=== PATIENT | female | born 1940 | race Caucasian/White ===

== ENCOUNTER 2016-12-18 19:35 | Inpatient (IN) | payer MEDICARE ==
[~2016-12-18] VITALS: Ht 165.1 cm; Wt 75.1 kg
[2016-12-18 20:14] LABS: BASOPHILS 0.1 % (0.0-2.0); EOSINOPHILS 0.5 % (0-7); HEMATOCRIT 33.3 % (36.0-48.0); HEMOGLOBIN 10.8 g/dL (12-16); IMMATURE GRANULOCYTES 0.3 % (0-5); LYMPHOCYTES 22.1 % (15-50); MCH 29.3 pg (26.0-34.0); MCHC 32.4 g/dL (31.0-37.0); MCV 90.5 fL (80.0-100.0); MEAN PLATELET VOLUME 9.4 fL (7.4-10.4); MONOCYTES 6.8 % (2-11); NEUTROPHILS 70.2 % (40-80); PLATELET COUNT 247 10x3/uL (130-400); RBC 3.68 10x6/uL (4.00-5.40); RDW 12.1 % (11.5-14.5); WBC 10.2 10x3/uL (4.8-10.8)
[2016-12-18 20:44] LABS: ALBUMIN 3.4 g/dL (3.4-5.0); ALKALINE PHOSPHATASE 70 U/L (46-116); ALT (SGPT) 16 U/L (10-68); AMYLASE - SERUM 59 U/L (25-115); BILIRUBIN - TOTAL 0.21 mg/dL (0.2-1.3); CALC OSMOLALITY 290 mosm/kg (275-300); CALCIUM 9.2 mg/dL (8.5-10.1); CARBON DIOXIDE 26.3 mmol/L (21.0-32.0); CHLORIDE - SERUM 105 mmol/L (98-107); CREATINE KINASE 68 UL (21-215); CREATININE - SERUM 1.4 mg/dL (0.6-1.3); GLUCOSE 112 mg/dL (74-106); LIPASE 121 U/L (73-393); POTASSIUM - SERUM 3.5 mmol/L (3.5-5.1); PRO BNP 480 pg/mL (0-450); PROTEIN - SERUM 6.8 g/dL (6.4-8.2); SODIUM 142 mmol/L (136-145); UREA NITROGEN 33 mg/dL (7-18); eGFR NON AFRICAN AMERICAN 39 mL/min (90-120)
[2016-12-18 20:46] LABS: TROPONIN-I < 0.017 ng/mL (0.000-0.060)
[2016-12-18 22:21] LABS: APPEARANCE HAZY (CLEAR); BILIRUBIN NEGATIVE (NEGATIVE); COLOR YELLOW (YELLOW); GLUCOSE 250 mg/dL (NEGATIVE); KETONE NEGATIVE (NEGATIVE); LEUKOCYTE ESTERASE 2+ (NEGATIVE); NITRITE NEGATIVE (NEGATIVE); PROTEIN NEGATIVE (NEGATIVE); UROBILINOGEN NORMAL (NORMAL)
[2016-12-18 22:22] LABS: RED CELLS - URINE 0-5 /hpf (0-5)
[2016-12-18 22:23] LABS: BACTERIA MANY /hpf (NONE SEEN); MUCUS <1+ /lpf (NONE SEEN)
--- NOTE | 2016-12-19 01:20 | NUR ---
RECIEVED TO ROOM 2101 FROM E.R. VIA WC. PT A&O, VITALS STABLE. RESPERATIONS EVEN AND UNLABORED. IV TO LEFT AC WITH NS INFUSING AT 75, SITE CLEAN AND DRY. PT STATES THAT FORTUNATO CANT SEE VERY WELL AND THAT SHE LEFT HER GLASSES AT HOME. ORIENTATED PT ROOM/SURROUNDINGS AND CL. INFORMED HER TO PRESS THE RED BUTTON FOR ASSISTANCE AND TO PLEASE NOT GET UP BY HER SELF, PT STATED UNDERSTANDING. ASKDED PT HAD ANY VALUABLES TO BE SENT TO SAFE AND PT STATED NO, THAT HER DAUGHTER TOOK ALL OF HER BELONGINGS HOME INCLUDING HER CLOTHES. PT DENIES PAIN OR NEEDS, AT THIS TIME, BED LOW, CL IN REACH.
[2016-12-19] MEDS ORDERED: ZOCOR40 MG PO (02:03)
[2016-12-19] MEDS ORDERED: METOPROLOL TART50 MG PO (02:04)
[2016-12-19] MEDS ORDERED: PRINIVIL20 MG PO (02:04)
[2016-12-19] MEDS ORDERED: TERAZOSIN HCL2 MG PO (02:05)
[2016-12-19] MEDS ORDERED: NOVOLIN N100 U/ML SQ (02:06)
[2016-12-19 04:00] VITALS: BP 127/62
--- NOTE | 2016-12-19 04:23 | NUR ---
RESTING WITH EYES CLOSED, RESPERATIONS EVEN, NO S/S DISTRESS NOTED.
[2016-12-19 07:48] VITALS: BP 138/57
[2016-12-19 08:21] VITALS: BP 138/57; BMI 27.5
--- NOTE | 2016-12-19 08:28 | NUR ---
PT IS ALERT. ASSESSMENT DONE PER FLOWSHEET. NO OTHER NEEDS AT THIS TIME. WILL CONTINUE TO MONTIOR.
[2016-12-19 11:03] VITALS: Ht 165.1 cm; Wt 75.1 kg
[2016-12-19] MEDS ORDERED: ROBAXIN500 MG PO ×2 (11:13→11:14)
[2016-12-19] MEDS ORDERED: HYDROCODONE-APA1 TAB PO (11:14)
[2016-12-19] MEDS ORDERED: NAMENDA XR28 MG PO (11:15)
[2016-12-19] MEDS ORDERED: OXYBUTYNIN CHLOR5 MG PO (11:16)
[2016-12-19] MEDS ORDERED: ULTRAM50 MG PO (11:16)
[2016-12-19] MEDS ORDERED: ZOLOFT100 MG PO (11:17)
[2016-12-19] MEDS ORDERED: COMBIVENT RESPIM4 GM INH (11:18)
[2016-12-19] MEDS ORDERED: TEMAZEPAM30 MG PO (11:18)
[2016-12-19] MEDS ORDERED: ADVAIR 250/501 DISK INH (11:19)
[2016-12-19] MEDS ORDERED: LYRICA150 MG PO (11:20)
[2016-12-19] MEDS ORDERED: NITROSTAT0.4 MG SL (11:20)
[2016-12-19] MEDS ORDERED: PRAVACHOL20 MG PO (11:21)
[2016-12-19 11:35] VITALS: BP 141/51
[2016-12-19 16:14] VITALS: BP 137/67
--- NOTE | 2016-12-19 19:49 | NUR ---
PT AWAKE, ALERT, ORIENTED, ON HER CELL PHONE, DENIES ANY NEEDS. CONTINUE TO MONITOR CLOSELY.
[2016-12-19 20:00] VITALS: BP 145/63
[2016-12-20] VITALS: BP 123/46
[2016-12-20 04:00] VITALS: BP 143/67
--- NOTE | 2016-12-20 04:11 | NUR ---
NURSE ROUNDS 19:30 - PT AWAKE, ALERT, ORIENTED, DENIES ANY NEEDS. I DID GIVE PT ZEUS HELLEN WITH HER BEDTIME INSULIN. CONTINUE TO MONITOR.
[2016-12-20 04:59] LABS: BASOPHILS 0.1 % (0.0-2.0); EOSINOPHILS 0.5 % (0-7); HEMOGLOBIN 10.7 g/dL (12-16); IMMATURE GRANULOCYTES 0.3 % (0-5); LYMPHOCYTES 31.7 % (15-50); MCH 28.8 pg (26.0-34.0); MCHC 31.5 g/dL (31.0-37.0); MCV 91.6 fL (80.0-100.0); MEAN PLATELET VOLUME 9.5 fL (7.4-10.4); NEUTROPHILS 62.4 % (40-80); PLATELET COUNT 249 10x3/uL (130-400); RBC 3.71 10x6/uL (4.00-5.40); RDW 12.3 % (11.5-14.5)
[2016-12-20 05:09] LABS: WBC 7.3 10x3/uL (4.8-10.8)
[2016-12-20 05:30] LABS: ANION GAP 10.2 mmol/L (8-16); CARBON DIOXIDE 29.4 mmol/L (21.0-32.0); CREATININE - SERUM 1.3 mg/dL (0.6-1.3); POTASSIUM - SERUM 4.6 mmol/L (3.5-5.1)
[2016-12-20 05:33] LABS: % SATURATION 23 % (15-55); IRON 46 ug/dl (35-150); TOTAL IRON BIND CAPACITY 192 ug/dl (260-445); UNSAT IRON BIND CAPACITY 146 ug/dl (150-375)
--- NOTE | 2016-12-20 06:23 | HP ---
PATIENT: SHRUTI LEMOS MEDICAL RECORD: [id number] ACCOUNT: [id number] LOCATION:[facility].2102 : 39 ADMISSION DATE: 12/19/16 HISTORY AND PHYSICAL EXAMINATION REASON FOR ADMISSION: Nausea, facial pain with uncontrolled diabetes. HISTORY OF PRESENT ILLNESS: The patient is a 76-year-old female with metabolic syndrome. She said for the last 2 weeks, she had symptoms of upper respiratory tract infection with sinus congestion and right-sided frontal headache. Her daughter had been treating her with Tylenol, which improved her symptoms. She denied fever, nasal rhinorrhea, or sore throat. Apparently, yesterday, she thought she might faint. They called EMS and noted her blood sugars over 500 and she was brought to the Emergency Room. She vomited once in the ER and then felt better. She denies any productive cough or abdominal pain. She has had some urinary urgency. She has been compliant with her diet. She says recently has had poor appetite for the last week. PAST MEDICAL HISTORY: Essential hypertension, type 2 diabetes mellitus, now on insulin, hyperlipidemia, osteoporosis, history of cellulitis of her right leg, requiring I&D and left wrist requiring I&D in the past. Remote history of seizures. PAST SURGICAL HISTORY: I&D of right foot and left wrist, and cataract surgery, OU. ALLERGIES: EGGS, INFLUENZA VACCINE, PENICILLIN. FAMILY HISTORY: Father at 95, he had a history of lung cancer, and was a smoker. Mother at 48 from rectal cancer. CURRENT MEDICATIONS: Lisinopril 20 mg daily, Novolin N 34 units subQ in the evening, simvastatin 40 mg at h.s., terazosin 2 mg p.o. daily, and metoprolol 50 mg p.o. daily. REVIEW OF SYSTEMS: GENERAL: She has felt very fatigued and somewhat nauseated for the last couple of days with poor appetite. HEENT: She has chronic trouble with her vision. She has had recent sinus congestion with some discomfort on her right maxillary and frontal sinus, but no rash. Denies sore throat or off color rhinorrhea. RESPIRATORY: No SOB or cough. CARDIAC: No chest pain, claudication or edema. GASTROINTESTINAL: She has had nausea and vomited once. Denies change in stools, diarrhea, melena, or abdominal pain. GYNECOLOGIC: No vaginal bleeding. NEUROLOGIC: No history of stroke. The patient had remote history of seizures, none in several years. ENDOCRINE: Denies polyuria, polydipsia, heat, or cold intolerance. INTEGUMENT: No rash or itching. PSYCHIATRIC: Denies depressed mood. PHYSICAL EXAMINATION: VITAL SIGNS: Temperature 96.1 Fahrenheit orally, pulse 82 and regular, respirations are 22, blood pressure 130/54, and sats 96% on room air. The HISTORY AND PHYSICAL [id number] SHRUTI LEMOS patient is alert and oriented. HEENT: Normocephalic. She is somewhat tender over the right frontal sinus to deep palpation. Eyes show cataract implants, OU, with poor vision. Oropharynx shows fair dentition. NECK: No adenopathy or bruits. CHEST: Clear. HEART: Regular rate without MGR. ABDOMEN: Soft and nontender throughout. Bowel sounds are active. PELVIC: Deferred. EXTREMITIES: A 1+ pretibial edema to mid calf bilaterally. Homans sign is negative. NEUROLOGIC: Oriented to person, place, and time. Cranial nerves grossly intact. Gait is normal. No motor deficits are appreciated. PSYCHIATRIC: Denies depressed mood. LABORATORY DATA: Blood sugar in the ambulance was 500 and was 293 in the ER. Urinalysis shows 2+ leukocyte esterase, 10-25 white cells, many bacteria. Potassium is 3.5, BUN and creatinine were 33 and 1.4. A1c is 9. Her original lactic acid was 2.8, and then dropped to 1.1. ProBNP is 480. Liver functions were normal. White count is 10,000, H&H of 10.8 and 33.3. DIAGNOSTIC DATA: No x-rays were done in the ER. ASSESSMENT: 1. Uncontrolled diabetes mellitus, type 2. 2. Urinary tract infection with lactic acidosis. 3. Anemia. 4. Near syncope. 5. Remote history of seizures. 6. Essential hypertension. 7. Hyperlipidemia. PLAN: We will hydrate, culture blood and urine, cardiac monitoring. Further workup pending clinical course. TRANSINT:[id number] Voice Confirmation ID: [id number] DOCUMENT ID: [id number] CAMERON GONZALEZ MD at 0623 CC: [id number] DICTATION DATE: 12/19/16 0708 INTELLIGENCE CLERK: 12/19/16 0823 ADM IN [place] [id number] [place] [address]
--- NOTE | 2016-12-20 07:57 | NUR ---
AM ROUNDING- PT LAYING IN BED ON BACK WITH EYES OPEN RESTING. FSBS ACHS, 182 THIS AM THAT WAS COVERED WITH 2UNITS BY BIOMATERIALS ENGINEER NURSE, HESHAM. PT IS ALERT AND ORIENTED. IV SEEN TO LEFT FOREARM WITH IV ANTIBIOTICS RUNNING CURRENTLY. IV FLUIDS ARE NS AT 30CC. ON ROOM AIR. PT IS UP AD FRANCK. ON EP. NO MONITOR. WILL CHECK AM LABS AND CONTINUE TO MONITOR.
[2016-12-20 08:10] VITALS: BP 138/61
[2016-12-20 11:50] VITALS: BP 135/53
[2016-12-20 15:52] VITALS: BP 171/69
--- NOTE | 2016-12-20 18:28 | NUR ---
PT SITTING IN BED TALKING ON PHONE. NO NEED AT CURRENT TIME. WILL CONTINUE TO MONITOR.
[2016-12-20 20:00] VITALS: BP 152/65
--- NOTE | 2016-12-20 21:22 | NUR ---
HS MEDS GIVEN, DENIES PAIN OR NEEDS, BED LOW, CL IN REACH.
[2016-12-21] VITALS: BP 160/70
--- NOTE | 2016-12-21 02:09 | NUR ---
LYING IN BED WITH EYES CLOSED, CALL LIGHT IN REACH. WILL CONTINUE WITH PLAN OF CARE.
--- NOTE | 2016-12-21 03:26 | NUR ---
RESTING WITH EYES CLOSED, RESPERATIONS EVEN, NO S/S DISTRESS NOTED.
[2016-12-21 04:00] VITALS: BP 134/58
--- NOTE | 2016-12-21 07:15 | NUR ---
PT IN BED RESTING QUIETLY EYES CLOSED RESP UNLABORED NAD NOTED
--- NOTE | 2016-12-21 07:35 | NUR ---
ASSESSMENT DONE. PT SITTING UP ON SIDE OF BED A/O. DENIES NEEDS AT THIS TIME. CALL LIGHT WITH IN REACH. WILL CONT. TO MONITOR.
[2016-12-21] MEDS ORDERED: MACROBID100 MG PO (08:00)
[2016-12-21 08:06] VITALS: BP 137/59
--- NOTE | 2016-12-21 09:19 | NUR ---
Patient Name: SHRUTI LEMOS Admission Status: ER Accout number: [id number] Admission Date: 12-19-2016 : 1940 Admission Diagnosis:URINARY TRACT INFECTION, SITE NOT SPECIFIED Attending: DEVIN Current LOS: 2 Anticipated DC Date: Planned Disposition: Home Primary Insurance: MEDICARE A & B Discharge Planning Comments: * Is the patient Alert and Oriented? Yes 0 * How many steps to enter\exit or inside your home? 3 0 * PCP DR. GONZALEZ 0 * Pharm[facility] [place] 0 * Preadmission Environment Home with Family 0 * ADLs Partial Dependent 0 * Partial ADLs (Assistance needed) Medication Management 0 * Equipment None 0 * Other Equipment NO MEDICAL EQUIPMENT PROVIDER PREFERENCE 0 * List name and contact numbers for known caregivers / representatives who currently or will assist patient after discharge: DORY MÁRQUEZ, DAUGHTER, 0 * Community resources currently utilized None 0 * Please name any agencies selected above. NONE 0 * Additional services required to return to the preadmission environment? No 0 * Can the patient safely return to the preadmission environment? Yes 0 * Has this patient been hospitalized within the prior 30 days at any hospital? No 0 CM MET WITH PT IN ROOM TO DISCUSS DISCHARGE PLANNING AND NEEDS. PT REPORTS LIVING AT HOME INDEPENDENTLY WITH HER ADULT DAUGHTER; PT ALSO REPORTED THAT HER DAUGHTER ASSISTS WITH ARRANGING HER MEDICATIONS AT HOME. PT HAS NO MEDICAL EQUIPMENT AND NO OUTSIDE SERVICES ASSISTING IN THE HOME. CM DISCUSSED AVAILABILITY OF HOME HEALTH, REHAB SERVICES AND MEDICAL EQUIPMENT. PT DENIES DISCHARGE NEEDS, REPORTS HER DAUGHTER WILL PICK HER UP FOR DISCHARGE HOME. IMPORTANT MESSAGE FROM MEDICARE PROVIDED AND EXPLAINED. Assembler Tractor: Nigel Christie
--- NOTE | 2016-12-21 09:23 | NUR ---
Nutrition Follow Up: Chart reviewed. Pt is eating 71% meal avg on a Diabetic diet. +BM 12/20/16. Labs noted - Glucose continues elevated. Meds noted including Humulin. Pt with good po intake at this time. Rec continue current diet. RD following.
[2016-12-21 12:00] VITALS: BP 142/66
[2016-12-21 14:22] LABS: FOLATE (FOLIC ACID) - SERUM 10.9 ng/mL (>3.0)
[2016-12-21 16:00] VITALS: BP 147/60
--- NOTE | 2016-12-21 17:19 | NUR ---
PT SITTING UP ON SIDE OF BED. A/O. WANTS TO GO HOME. DENIES NEEDS OR WANTS AT THIS TIME. CALL LIGHT WITH IN REACH. WILL CONT. TO MONITOR.
--- NOTE | 2016-12-21 19:15 | NUR ---
PT D/C HOME VIA SELF CARE. VIA PRIVATE VEHICLE. IV REMOVED.
--- NOTE | 2016-12-25 07:39 | DS ---
PATIENT:SHRUTI LEMOS :[birth year] MEDICAL RECORD: [id number] DISCHARGE SUMMARY ADMISSION DATE: 12/19/16 DISCHARGE DATE: 12/21/16 DISCHARGE DIAGNOSES: Urinary tract infection, uncontrolled diabetes mellitus, essential hypertension, intravascular volume depletion. HOSPITAL COURSE: A 76-year-old female after being ill at home. She had blood sugars exceeding 500, nausea, unable to hold food down. She was brought by EMS. Blood sugar was over 500. She was given insulin en route. On admission to the Emergency Room, she was noted to have pyuria. Her white count was 10.2 thousand with left shift. H&H was 10.8 and 33.3, normocytic. BUN and creatinine are 33 and 1.4. Glucose was improved with fluids and subcutaneous insulin. A1c was 9.0. Her anemia was worked up, at this time appears to be anemia of chronic disease of iron of 46, TIBC low at 192, ferritin of 146. B12 and folate are pending. Urinalysis showed 10-25 white and red cells, many bacteria. Culture result is currently pending. Her blood cultures are negative. She has been on Rocephin. Clinically, good response to therapy. Blood sugars are now in the 124-179 range. She will be discharged today in improved condition on Macrobid b.i.d. with follow up urine culture anemia workup in my office in 1 week. DISCHARGE MEDICATIONS: Macrobid 100 mg p.o. b.i.d., Combivent Respimat 1 puff q.i.d., Robaxin 500 mg 2 tabs p.o. q.i.d. p.r.n. muscle spasm, lisinopril 20 mg p.o. daily, Lopressor 50 mg p.o. daily, Nitrostat 0.4 sublingual p.r.n. chest pain, Pravachol 20 mg with evening meal, Hytrin 2 mg p.o. at bedtime, [place] 10/325 one q.8 hours p.r.n. severe pain, Namenda XR 20 mg p.o. daily, Lyrica 150 p.o. t.i.d., Zoloft 100 mg p.o. at bedtime, Restoril 30 mg at bedtime p.r.n. sleep, Ultram 50 mg q.6 hours p.r.n. moderate pain, NPH Novolin insulin 33 units subcutaneous q.a.m., Ditropan 5 mg p.o. b.i.d. DIET: Diabetic. ACTIVITY: Progress as tolerated. Return to clinic and see me in 1 week with UA, urine culture, and CBC. Follow up on anemia workup. TRANSINT:[id number] Voice Confirmation ID: [id number] DOCUMENT ID: [id number] CAMERON GONZALEZ MD at 0739 CC: [id number] DICTATION DATE: 12/21/16 0758 RESEARCH HYDROLOGIST: 12/22/16 0018 DIS IN 12/21/16 [facility] [address] [place] [address]
== END 2016-12-21 19:13 | disposition home or self-care (01) | DRG 638 ==
LOC: D.ER 19:35 → OBSVTIME 23:12 → D.M2 23:12
PROVIDERS: Family Medicine; ADMIT Family Medicine
DX: E11.65 Type 2 diabetes mellitus with hyperglycemia (principal); N39.0 Urinary tract infection, site not specified; E86.0 Dehydration; Z79.4 Long term (current) use of insulin; E78.5 Hyperlipidemia, unspecified; I10 Essential (primary) hypertension; D64.9 Anemia, unspecified; E11.39 Type 2 diabetes mellitus with other diabetic ophthalmic complication; E88.81 Metabolic syndrome and other insulin resistance; R51 Headache; R55 Syncope and collapse; M81.0 Age-related osteoporosis without current pathological fracture